=== PATIENT | female | born 1960 | race Caucasian/White ===

== ENCOUNTER → 2018-02-07 | Outpatient (CLI) | payer MEDICARE, OTHER ==
[2018-02-07 08:50] LABS: Anisocytosis Slight; HCT 35.1 % (34.0-46.0); HGB 10.9 gm/dL (11.4-16.0); Hypochromasia Moderate; MCH 21.7 pg (25.0-35.0); MCV 70.2 fL (80.0-100.0); Mean Platelet Volume 6.6; Microcytosis Marked; Platelet Count 294 k/uL (150-450); RBC 4.99 m/uL (3.80-5.40); RDW 17.4 % (11.5-15.5); WBC 3.5 k/uL (3.8-10.6)
[2018-02-07 08:57] LABS: ALT 31 U/L (9-52); AST 27 U/L (14-36); Albumin 3.9 g/dL (3.5-5.0); Alkaline Phosphatase 102 U/L (38-126); Anion Gap 11 mmol/L; Blood Urea Nitrogen 8 mg/dL (7-17); Calcium 9.5 mg/dL (8.4-10.2); Carbon Dioxide 30 mmol/L (22-30); Chloride 96 mmol/L (98-107); Glucose 84 mg/dL (74-99); Potassium 4.2 mmol/L (3.5-5.1); Sodium 137 mmol/L (137-145); Total Bilirubin 0.8 mg/dL (0.2-1.3); Total Protein 7.2 g/dL (6.3-8.2)
[2018-02-07 10:18] LABS: Basophils # (M) 0.07 k/uL (0-0.2); Eosinophils # (M) 0.07 k/uL (0-0.7); Lymphocytes # (M) 1.09 k/uL (1.0-4.8); Monocytes # (M) 0.25 k/uL (0-1.0); Neutrophils # (M) 2.03 k/uL (1.3-7.7); Neutrophils % (M) 58 %; Nucleated Red Blood Cells 0 /100 WBC (0-0); Poikilocytosis (M) Present; Total Cells Counted 100
== END | disposition home or self-care (01) ==
LOC: LABPAT 08:07
PROVIDERS: ATTEND Surgery
DX: Z01.812 Encounter for preprocedural laboratory examination (principal); Z01.818 Encounter for other preprocedural examination
CPT/HCPCS: 80053; 85025; 93005

== ENCOUNTER 2018-02-09 10:23 | Day surgery (SDC) | payer MEDICARE, OTHER ==
[2018-02-05 09:24] VITALS: BMI 44.8
[~2018-02-09 10:23] MED LIST: DEXAMETHASONE SOD PHOSPHATE 10 MG/ML 1 ML VIAL IV ONE; ENOXAPARIN 40 MG/0.4 ML SYRINGE SQ ONE; LACTATED RINGERS 1,000 ML IV SCH; ONDANSETRON 4 MG/2 ML VIAL IVP ONE; SCOPOLAMINE 1.5MG/72HR PATCH TRANSDERM ONE; ceFAZolin IN SWFI 2 GM/20 ML SYRINGE IVP ONE; fentaNYL (PF) 50 MCG/ML 2 ML AMP IV PRN
[2018-02-09 11:10] VITALS: TEMP 97.8
--- NOTE | 2018-02-09 11:10 | P.GSHP ---
History of Present Illness H&P Date: 02/09/18 Chief Complaint: Dysphagia, vomiting, gastric prolapse Patient seen in the bariatric center at [facility] 1-2 weeks ago. Patient has had progressive nausea and vomiting over the last several months. Her band was emptied and 2010. Upper GI was performed which showed possible gastric prolapse. She is tolerating liquids but has difficulties with solids. Also with heartburn symptoms. Mild discomfort at times. No recent upper endoscopy. Past Medical History Past Medical History: Asthma, Chest Pain / Angina, CVA/TIA, GERD/Reflux, Hypertension, Pulmonary Embolus (PE), Thyroid Disorder Additional Past Medical History / Comment(s): HX OF CVA DURING BACK SURGERY ( 2002), DRAGS RIGHT FOOT, TRANSFERS WITH ASSIST TO WHEELCHAIR, HX FALLS., NEUROPATHY, HX FX TIB & FIB WITH PE (2011), STATES BACK PAIN , LEG PAIN AND ALL OVER PAIN., ANEMIA., LAP BAND, STATES VOMITING-DYSPHAGIA. History of Any Multi-Drug Resistant Organisms: None Reported Past Surgical History: Back Surgery, Bariatric Surgery, Heart Catheterization, Hysterectomy, Orthopedic Surgery Additional Past Surgical History / Comment(s): solo tib/fib fx, LAP BAND, RIGHT SHOULDER, CYST THUMB . Past Anesthesia/Blood Transfusion Reactions: No Reported Reaction Past Psychological History: Anxiety Smoking Status: Never smoker Past Alcohol Use History: None Reported Past Drug Use History: None Reported - Past Family History Mother Family Medical History: Cancer Additional Family Medical History / Comment(s): STOMACH CANCER Sister(s) Family Medical History: Cancer Additional Family Medical History / Comment(s): 2 SISTERS-BREAST CANCER Medications and Allergies Home Medications Medication Instructions Recorded Confirmed Type ALPRAZolam [Xanax] 0.25 mg PO QID PRN 02/04/14 02/05/18 History Furosemide [Furosemide] 40 mg PO DAILY 02/04/14 02/05/18 History Gabapentin [Gabapentin] 600 mg PO QID 02/04/14 02/05/18 History Montelukast Sodium [Montelukast 10 mg PO HS 02/04/14 02/05/18 History Sodium] amLODIPine BESYLATE [Norvasc] 5 mg PO DAILY 02/04/14 02/05/18 History Rivaroxaban [Xarelto] 20 mg PO W/LUNCH 02/03/18 02/05/18 History Atenolol [Tenormin] 50 mg PO DAILY 02/05/18 02/05/18 History Ergocalciferol (Vitamin D2) 50,000 unit PO FR 02/05/18 02/05/18 History [Vitamin D2] Esomeprazole Magnesium [NexIUM] 40 mg PO W/LUNCH 02/05/18 02/05/18 History Levothyroxine Sodium [Synthroid] 56 mcg PO KING 02/05/18 02/05/18 History Levothyroxine Sodium [Synthroid] 112 mcg PO MOTUWETHFRSA 02/05/18 02/05/18 History Morphine Sulfate ER [Ms Contin 30 mg PO QID PRN 02/05/18 02/05/18 History 30Mg] Nitroglycerin Sl Tabs [Nitrostat] 0.4 mg SUBLINGUAL Q5M PRN 02/05/18 02/05/18 History Allergies Allergy/AdvReac Type Severity Reaction Status Date / Time clarithromycin [From Biaxin] Allergy Nausea & Verified 02/05/18 08:55 Vomiting, Rash diazepam [From Valium] Allergy Nervous, Verified 02/05/18 08:55 Hyper hydromorphone HCl Allergy Nausea & Verified 02/05/18 08:55 [From Dilaudid] Vomiting & Diarrhea Sulfa (Sulfonamide Allergy Nausea & Verified 02/05/18 08:55 Antibiotics) Vomiting sulfamethoxazole Allergy Nausea & Verified 02/05/18 08:55 [From Bactrim] Vomiting trimethoprim [From Bactrim] Allergy Nausea & Verified 02/05/18 08:55 Vomiting metoclopramide [From Reglan] AdvReac Unknown Vomiting Verified 02/05/18 08:55 adhesive AdvReac Rash/Hives Verified 02/05/18 08:55 Surgical - Exam Physical exam: General: Well-developed, well-nourished HEENT: Normocephalic, sclerae nonicteric Abdomen: Nontender, nondistended Extremities: No edema Neuro: Alert and oriented Assessment and Plan (1) Gastric prolapse Narrative/Plan: Clinical scenario discussed in detail with the patient and her family. Patient is interested in band removal. We'll proceed with laparoscopic lap band removal , possible open. We'll also plan upper endoscopy at the time of the procedure per the patient's request given her complaints of reflux. This will be performed prior to incision and may help guide our surgery if erosion is identified which is not clinically suspected. Risks of bleeding, infection, perforation, conversion, hernia, anesthesia related complications were reviewed. Patient understands and wishes to proceed. Current Visit: Yes Status: Acute Code(s): K31.89 - OTHER DISEASES OF STOMACH AND DUODENUM SNOMED Code(s): 1056717
[2018-02-09] MEDS ORDERED: LIDOCAINE 1% 20 ML VIAL (10MG/ML) FOR IV START INTRADERMA ONE (11:40)
[2018-02-09] MEDS ORDERED: BUPIVACAINE (PF) 0.25% 30 ML VIAL SQ ONE ×2 (12:10)
[2018-02-09] MEDS ORDERED: PHENYLEPHRINE-0.9% NACL SYG 1 MG/10 ML SYRINGE ONE (13:22)
[2018-02-09] MEDS ORDERED: ePHEDrine SULFATE/0.9% NACL/PF 50 MG/5 ML SYRINGE IV ONE (13:22)
[2018-02-09] MEDS ORDERED: MIDAZOLAM 2 MG/2 ML VIAL ONE (13:22)
[2018-02-09] MEDS ORDERED: NEOSTIGMINE 1 MG/ML 10 ML VIAL ONE (13:22)
[2018-02-09] MEDS ORDERED: fentaNYL (PF) 50 MCG/ML 2 ML AMP ONE (13:22)
[2018-02-09] MEDS ORDERED: ROCURONIUM BROMIDE 10 MG/ML 10 ML VIAL IV ONE (13:22)
[2018-02-09] MEDS ORDERED: GLYCOPYRROLATE 0.2 MG/ML 2 ML VIAL ONE (13:22)
[2018-02-09] MEDS ORDERED: LIDOCAINE 1% INJ 10MG/ML (20 ML MDV) ONE (13:22)
[2018-02-09] MEDS ORDERED: PROPOFOL 10 MG/ML 20 ML VIAL IV ONE (13:22)
[2018-02-09] MEDS ORDERED: HYDROcodone/APAP 5-325MG 1 EACH TAB PO PRN (14:45)
[2018-02-09] MEDS ORDERED: NALOXONE 0.4 MG/ML 1 ML VIAL IV PRN (14:45)
--- NOTE | 2018-02-09 14:49 | P.OP ---
Date of Procedure: 02/09/18 Procedure(s) Performed: PREOPERATIVE DIAGNOSIS: Gastric prolapse POSTOPERATIVE DIAGNOSIS: Same PROCEDURE: Laparoscopic lap band removal SURGEON: Letitia EBL: Minimal ANESTHESIA: General COMPLICATIONS: None OPERATIVE PROCEDURE: The patient was brought and placed on the operating room table in the supine position. The patient was placed under general anesthesia at that time. The patient was unable to be placed in lithotomy given her leg stiffness. The abdomen was prepped and draped in the usual sterile fashion. The previous port incision was localized and then incised using a scalpel. The port was easily excised using electrocautery. A crack was noted in the lap band tubing appeared chronic in nature. Entrance into the peritoneal cavity occurred using a 5 mm optical trocar through the old trocar entrance site. Insufflation took place to 15 mmHg. 2 additional 5 mm trochars were placed under direct visualization. One in the right periumbilical location and one in the right upper quadrant laterally. The original 5 mm trocar was switched to a 15 mm trocar. There were adhesions to the band in the buccal that were lysed using electrocautery. The band was then cut using the laparoscopic radha. The band was then removed easily in 2 portions through the 15 mm trocar site. The stomach itself was inspected and revealed no evidence of erosion or prolapse. The trochars were removed. The fascia at the 15 mm site was closed using a [id number] 0 Vicryl stitch. The subcutaneous tissues at the port site was closed using a 3-0 Vicryl suture. The skin at all 3 incision sites were closed using 4-0 Monocryl sutures. Steri-Strips and sterile dressings were then applied. DISPOSITION: Stable to recovery room
[2018-02-09] MEDS ORDERED: KETOROLAC 30 MG/ML 1 ML VIAL IVP ONE (15:20)
[2018-02-09 15:22] VITALS: RESP 16
[2018-02-09] MEDS ORDERED: LACTATED RINGERS 1,000 ML IV ONE (16:00)
[2018-02-09] MEDS ORDERED: HYDROcodone/APAP 5-325MG 1 EACH TAB PO ONE (16:18)
[2018-02-09 16:42] VITALS: BP 91/63; PULSE 54
[2018-02-09] MEDS ORDERED: MORPHINE SULFATE 4 MG/ML SYRINGE IV ONE (16:55)
== END 2018-02-09 17:25 | disposition home or self-care (01) ==
LOC: OR 10:23
PROVIDERS: ATTEND Surgery
DX: T85.598A Other mechanical complication of other gastrointestinal prosthetic devices, implants and grafts, initial encounter (principal); K21.9 Gastro-esophageal reflux disease without esophagitis; I10 Essential (primary) hypertension; J45.909 Unspecified asthma, uncomplicated; I69.351 Hemiplegia and hemiparesis following cerebral infarction affecting right dominant side; Z86.711 Personal history of pulmonary embolism; E07.9 Disorder of thyroid, unspecified; I20.9 Angina pectoris, unspecified; F41.9 Anxiety disorder, unspecified; Z79.01 Long term (current) use of anticoagulants; Z79.899 Other long term (current) drug therapy; Z79.890 Hormone replacement therapy; Z88.1 Allergy status to other antibiotic agents; Z88.5 Allergy status to narcotic agent; Z88.2 Allergy status to sulfonamides; Z88.8 Allergy status to other drugs, medicaments and biological substances; Z91.09 Other allergy status, other than to drugs and biological substances
CPT/HCPCS: 43774; J2250; J2270; J1100; J2710; J2405; J2001; J1650; J3010; J1885; J2370; J2704; J0690

== ENCOUNTER → 2018-03-10 | Outpatient (CLI) | payer MEDICARE, OTHER ==
[2018-03-10 14:05] VITALS: BP 109/76; PULSE 60; RESP 16; TEMP 98
--- NOTE | 2018-03-10 14:10 | P.BASOAP ---
Subjective Progress Note Date: 03/10/18 Principal diagnosis: Morbid obesity Patient doing well after recent lap band removal. No further nausea or vomiting. She said it was like a night and a difference. No troubles with her incision. No abdominal pain. Objective - Vital Signs Vital signs: Vital Signs Temp 98 F 03/10/18 14:02 Pulse 60 03/10/18 14:02 Resp 16 03/10/18 14:02 BP 109/76 03/10/18 14:02 Pulse Ox - Exam Abdomen: Soft, nondistended, nontender, incisions clean and dry Assessment/Plan (1) Gastric prolapse Narrative/Plan: Patient doing well after recent band removal. No further complaints. Follow- up as needed. Plan: Date: 03/10/18 Initial Weight: 124.738 kg Initial BMI: Current Weight: Current BMI: Type of Surgery: Total Volume in Band: Previous Volume: Volume Removed: Volume Added: Band Size:
== END | disposition home or self-care (01) ==
LOC: BARWHC3 13:51
PROVIDERS: ATTEND Surgery
DX: K31.89 Other diseases of stomach and duodenum (principal); Z98.84 Bariatric surgery status
CPT/HCPCS: 99211

== ENCOUNTER → 2019-03-08 | Outpatient (CLI) | payer MEDICARE, OTHER ==
--- NOTE | 2019-03-08 11:16 | BD ---
EXAMINATION TYPE: Axial Bone Density DATE OF EXAM: 03/08/2019 COMPARISON: 05/29/2015 CLINICAL HISTORY: Postmenopausal female. Osteoporosis screening. Height: 5 FT 3 IN Weight: 265 FRAX RISK QUESTIONS: History of Fracture in Adulthood: YES Secondary Osteoporosis: 3. Menopause before 45: YES RISK FACTORS HISTORY OF: Surgery to Spine/Hip(right/left)/Wrist (right/left): LUMBAR SURG When: 2000 Family History of Osteoporosis: YES Active: WHEEL CHAIR BOUND Postmenopausal woman: TOTAL HYST AGE 40 Take estrogen and/or progesterone medications: TOOK HRT AGE [age] Lost more than 2 inches in height since high school: YES Poor Health: YES MEDICATIONS: Thyroid Medications: YES Which medication: SYNTHROID How Lon PLUS YEARS Additional Medications: SYNTHROID,MORPHINE, TENORMIN, BLOOD PRESSURE MEDS, XARALTO, SINGULAIR, BETA B LOCKER Additional History: PT DOES NOT STAND WHEELCHAIR BOUND ASSISSTED TO GET HER ON THE TABLE EXAM MEASUREMENTS: Bone mineral density about the R hip (g/cm2): 0.672 Bone mineral density about the L hip (g/cm2): 0.823 T Score values are as follows: -----R Neck: -2.6 -----L Neck: -1.5 -----R Total: -1.7 -----L Total: -0.8 Bone mineral density has: INCREASED 1.7 % since study of: 2014 Bone mineral density about the L Wrist (g/cm2): 0.638 T Score values are as follows: -----Dist. R+U: -1.5 -----Prox. R+U: -0.5 -----Radius total: -0.6 NO COMPARISON IMPRESSION: Osteopenia (T Score between -2.5 and -1). There is slightly increased risk of fracture and the patient may be considered for treatment. Re-Screen 2-5 years. NOTE: T-SCORE=SD OF THE YOUNG ADULT MEAN.
--- NOTE | 2019-03-10 08:41 | MM ---
Reason for exam: screening (asymptomatic). Last mammogram was performed 3 years and 9 months ago. History: Patient is postmenopausal. Family history of breast cancer in sister at age 60 and premenopausal breast cancer in sister at age 50. Took estrogen for 3 years. Physical Findings: A clinical breast exam by your physician is recommended on an annual basis and results should be correlated with mammographic findings. MG 3D Screening Mammo W/Cad Bilateral CC and MLO view(s) were taken. Prior study comparison: May 29, 2015, bilateral MG screening mammo w CAD. May 27, 2014, bilateral MG screening mammo w CAD. There are scattered fibroglandular densities. No suspicious abnormality. No significant changes when compared with prior studies. ASSESSMENT: Negative, BI-RAD 1 RECOMMENDATION: Routine screening mammogram of both breasts in 1 year.
== END | disposition home or self-care (01) ==
LOC: RADMAMWWP 07:17
PROVIDERS: ATTEND Internal Medicine
DX: Z12.31 Encounter for screening mammogram for malignant neoplasm of breast (principal); M85.851 Other specified disorders of bone density and structure, right thigh; M85.852 Other specified disorders of bone density and structure, left thigh; M85.832 Other specified disorders of bone density and structure, left forearm; Z78.0 Asymptomatic menopausal state
CPT/HCPCS: 77063; 77067; 77080

== ENCOUNTER → 2019-07-31 | Outpatient (CLI) | payer MEDICARE, OTHER ==
[2019-07-31 09:31] LABS: Anisocytosis Slight; HCT 34.3 % (34.0-46.0); HGB 10.4 gm/dL (11.4-16.0); Hypochromasia Marked; MCH 21.7 pg (25.0-35.0); MCHC 30.3 g/dL (31.0-37.0); MCV 71.8 fL (80.0-100.0); Mean Platelet Volume 5.9; Microcytosis Marked; Platelet Count 283 k/uL (150-450); RBC 4.78 m/uL (3.80-5.40); RDW 18.3 % (11.5-15.5); WBC 3.6 k/uL (3.8-10.6)
[2019-07-31 10:46] LABS: Anisocytosis (M) Present; Eosinophils # (M) 0.22 k/uL (0-0.7); Lymphocytes # (M) 1.19 k/uL (1.0-4.8); Neutrophils % (M) 50 %; Nucleated Red Blood Cells 0 /100 WBC (0-0); Target Cells Present; Total Cells Counted 100
[2019-07-31 17:45] LABS: Albumin 4.1 g/dL (3.80-4.90); Albumin/Globulin Ratio 1.46 (1.60-3.17); Anion Gap 6.4 mmol/L (4.00-12.00); Calcium 8.9 mg/dL (8.7-10.3); Carbon Dioxide 26.6 mmol/L (21.6-31.8); Chol/HDL Ratio 2.17; Globulin 2.8 g/dL (1.6-3.3); LDL Cholesterol,Calculated 60.2 mg/dL (0.0-131.0); Potassium 4.3 mmol/L (3.5-5.5); Total Protein 6.9 g/dL (6.2-8.2); VLDL Calculation 15.8 mg/dL (5.00-40.00)
[2019-07-31 17:53] LABS: T4, Free (Free Thyroxine) 1.2 ng/dL (0.80-1.80)
== END | disposition home or self-care (01) ==
LOC: LABWHC1 08:28
PROVIDERS: ATTEND Internal Medicine
DX: E06.3 Autoimmune thyroiditis (principal); E03.9 Hypothyroidism, unspecified; E55.9 Vitamin D deficiency, unspecified; E78.00 Pure hypercholesterolemia, unspecified
CPT/HCPCS: 36415; 80053; 80061; 82306; 84439; 84443; 85025

== ENCOUNTER → 2021-04-10 | Outpatient (CLI) | payer MEDICARE, OTHER ==
[2021-04-10 16:31] LABS: HGB 9.9 g/dL (12.0-15.0); MCH 20.2 pg (27.0-32.0); MCV 67.5 fL (80.0-97.0); Platelet Count 372 X 10*3/uL (140-440); RBC 4.89 X 10*6/uL (4.10-5.20); RDW 19.3 % (11.5-14.5); WBC 6.71 X 10*3/uL (4.50-10.00)
[2021-04-10 20:55] LABS: African American GFR (CKD) 120.2 (60.0-200.0); Albumin/Globulin Ratio 1.25 (1.60-3.17); Anion Gap 9.3 mmol/L (4.00-12.00); Calcium 8.7 mg/dL (8.7-10.3); Carbon Dioxide 22.7 mmol/L (21.6-31.8); Chol/HDL Ratio 2.32; Globulin 3.2 g/dL (1.6-3.3); LDL Cholesterol,Calculated 57.6 mg/dL (0.0-131.0); Non-African American GFR(CKD) 103.7 (60.0-200.0); Potassium 4.5 mmol/L (3.5-5.5); Total Bilirubin 0.9 mg/dL (0.3-1.2); Total Protein 7.2 g/dL (6.2-8.2); VLDL Calculation 16.4 mg/dL (5.00-40.00)
[2021-04-10 21:02] LABS: T4, Free (Free Thyroxine) 1.4 ng/dL (0.80-1.80)
[2021-04-11 20:55] LABS: % Iron Saturation 4.99 (12.00-45.00)
== END | disposition home or self-care (01) ==
LOC: LABWHC1 08:25
PROVIDERS: ATTEND Internal Medicine
DX: E03.9 Hypothyroidism, unspecified (principal); E55.9 Vitamin D deficiency, unspecified; E78.5 Hyperlipidemia, unspecified
CPT/HCPCS: 36415; 80053; 80061; 82306; 83540; 83550; 84439; 84443; 85027

== ENCOUNTER → 2022-01-08 | Outpatient (CLI) | payer MEDICARE, OTHER ==
[2022-01-08 14:30] LABS: HGB 10.8 g/dL (12.0-15.0); MCH 22.4 pg (27.0-32.0); MCHC 30.9 g/dL (32.0-37.0); MCV 72.6 fL (80.0-97.0); Mean Platelet Volume 10.5 fL (9.5-12.2); NRBC Per 100 WBC 0.4 /100 WBCS (0.0-0.0); Platelet Count 309 X 10*3/uL (140-440); RBC 4.82 X 10*6/uL (4.10-5.20); RDW 18.2 % (11.5-14.5); WBC 5.36 X 10*3/uL (4.50-10.00)
[2022-01-08 15:32] LABS: % Iron Saturation 4.99 (12.00-45.00); T4, Free (Free Thyroxine) 1.65 ng/dL (0.800-1.800)
== END | disposition home or self-care (01) ==
LOC: LABWHC1 09:16
PROVIDERS: ATTEND Internal Medicine
DX: E61.1 Iron deficiency (principal); E03.9 Hypothyroidism, unspecified; E55.9 Vitamin D deficiency, unspecified; R73.9 Hyperglycemia, unspecified
CPT/HCPCS: 36415; 82306; 83540; 83550; 84439; 84443; 85027

== ENCOUNTER → 2022-12-11 | Outpatient (CLI) | payer MEDICARE, OTHER ==
[2022-12-11 15:27] LABS: HCT 44.6 % (37.2-46.3); HGB 14.7 g/dL (12.0-15.0); MCH 29.5 pg (27.0-32.0); MCV 89.4 fL (80.0-97.0); NRBC Per 100 WBC 0 /100 WBCS (0.0-0.0); Platelet Count 214 X 10*3/uL (140-440); RBC 4.99 X 10*6/uL (4.10-5.20); RDW 15.1 % (11.5-14.5); WBC 6.99 X 10*3/uL (4.50-10.00)
[2022-12-11 16:35] LABS: % Iron Saturation 29.61 (12.00-45.00); African American GFR (CKD) 111.6 (60.0-200.0); Anion Gap 18.5 mmol/L (10.00-18.00); BUN/Creat Ratio 15.33 Ratio (12.00-20.00); Blood Urea Nitrogen 9.2 mg/dL (9.0-27.0); Calcium 9.9 mg/dL (8.7-10.3); Carbon Dioxide 22.5 mmol/L (20.0-27.5); Ferritin 92.9 ng/mL (10.0-291.0); Non-African American GFR(CKD) 96.3 (60.0-200.0); Potassium 4.6 mmol/L (3.5-5.5); T4, Free (Free Thyroxine) 2.02 ng/dL (0.800-1.800)
== END | disposition home or self-care (01) ==
LOC: LABWHC1 09:29
PROVIDERS: ATTEND Internal Medicine
DX: E03.9 Hypothyroidism, unspecified (principal); E55.9 Vitamin D deficiency, unspecified; E61.1 Iron deficiency
CPT/HCPCS: 36415; 80048; 82306; 82728; 83540; 83550; 84439; 84443; 85027

== ENCOUNTER → 2022-12-11 | Outpatient (CLI) | payer MEDICARE, OTHER ==
--- NOTE | 2022-12-11 10:40 | XR ---
EXAM TYPE: LUMBAR SPINE X RAY SERIES COMPARISON: NONE HISTORY: Back pain TECHNIQUE: 4 views are submitted. FINDINGS: Alignment is anatomic. The pedicles are intact. The transverse processes are intact. There is no s pondylolysis or spondylolisthesis. Surgical clips in the right upper quadrant. There is diffuse oste openia and there is severe multilevel degenerative disc disease most marked at levels L3-L5. Suspect multilevel foraminal protrusion with facet arthropathy. Retrolisthesis of L3 on L4 and L4 on L5. Curv ature of the spine noted. Nonspecific right upper quadrant calcification. IMPRESSION: 1. Diffuse osteopenia with severe degenerative disc disease L3-L5 suspected foraminal encroachment. R ecommend follow-up MRI..
== END | disposition home or self-care (01) ==
LOC: LABWHC1 09:34
PROVIDERS: ATTEND Physical Medicine & Rehabilitation
DX: M51.36 Other intervertebral disc degeneration, lumbar region (principal); M85.88 Other specified disorders of bone density and structure, other site
CPT/HCPCS: 72110

== ENCOUNTER 2023-09-24 08:31 | Day surgery (SDC) | payer MEDICARE, OTHER ==
[2023-09-19 11:47] VITALS: BMI 50.8
[~2023-09-24 08:31] MED LIST changes: -DEXAMETHASONE SOD PHOSPHATE 10 MG/ML 1 ML VIAL IV ONE; -ENOXAPARIN 40 MG/0.4 ML SYRINGE SQ ONE; +LIDOCAINE 1% (10MG/ML) FOR IV START INTRADERMA PRN; -ONDANSETRON 4 MG/2 ML VIAL IVP ONE; -SCOPOLAMINE 1.5MG/72HR PATCH TRANSDERM ONE; -ceFAZolin IN SWFI 2 GM/20 ML SYRINGE IVP ONE; -fentaNYL (PF) 50 MCG/ML 2 ML AMP IV PRN
[2023-09-24 09:16] VITALS: RESP 16; TEMP 97
[2023-09-24] MEDS ORDERED: LIDOCAINE 2% (PF) 20 MG/ML 5 ML VIAL ONE (09:31)
[2023-09-24] MEDS ORDERED: PROPOFOL 10 MG/ML 20 ML VIAL IV ONE (09:31)
[2023-09-24] MEDS ORDERED: fentaNYL (PF) 50 MCG/ML 2 ML AMP ONE (09:31)
[2023-09-24 09:32] LABS: Glucose,Whole Blood 77 mg/dL (70-110)
--- NOTE | 2023-09-24 09:42 | P.PCN ---
Date of Procedure: 09/24/23 Procedure(s) Performed: BRIEF HISTORY: Patient is a 63-year-old, pleasant, whites female scheduled for an upper endoscopy as a part of evaluation of chronic cough and intermittent dysphagia to solids for the last 6 months duration.. PROCEDURE PERFORMED: Esophagogastroduodenoscopy with biopsy. PREOPERATIVE DIAGNOSIS: Chronic cough and dysphagia. IV sedation per anesthesia. PROCEDURE: After informed consent was obtained, the patient was brought into the endoscopy unit. IV sedation was administered by Anesthesia under continuous monitoring. Initially the Olympus GIF-140 video endoscope was inserted into the mouth. Esophagus intubated without any difficulty. It was gradually advanced into the stomach and duodenum and carefully examined. The bulb and the second part of the duodenum appeared normal. The scope at this time was withdrawn to the stomach, adequately insufflated with air, and upon careful examination, mucosa of the antrum were normal. Multiple gastric polyps noted in the gastric body which were biopsied. Rest of the, body, cardia and the fundus appeared normal. The scope was then withdrawn into the esophagus. The GE junction was located at 39 cm from the incisors. All hiatal hernia noted. The esophagus appeared normal. There were no erosions or ulcerations seen and the patient tolerated the procedure well. IMPRESSION: 1. Small hiatal hernia but no evidence of esophagitis or esophageal stricture. 2. Multiple gastric polyps status post biopsy. RECOMMENDATIONS: The findings of this examination were discussed with the patient as well as a family. She was advised to follow with the biopsy results. Continue with Nexium 40 mg daily and follow antrum reflux measures..
[2023-09-24 10:04] VITALS: BP 115/71; PULSE 52
== END 2023-09-24 10:32 | disposition home or self-care (01) ==
LOC: ORWHC2ENDO 08:31
PROVIDERS: ATTEND Internal Medicine Gastroenterology
DX: K29.50 Unspecified chronic gastritis without bleeding (principal); K31.7 Polyp of stomach and duodenum; K44.9 Diaphragmatic hernia without obstruction or gangrene; I10 Essential (primary) hypertension; E78.5 Hyperlipidemia, unspecified; E03.9 Hypothyroidism, unspecified; F41.9 Anxiety disorder, unspecified; I26.99 Other pulmonary embolism without acute cor pulmonale; K21.9 Gastro-esophageal reflux disease without esophagitis; Z79.899 Other long term (current) drug therapy; Z98.890 Other specified postprocedural states; Z88.2 Allergy status to sulfonamides; E66.01 Morbid (severe) obesity due to excess calories; Z79.891 Long term (current) use of opiate analgesic; Z68.43 Body mass index [BMI] 50.0-59.9, adult
CPT/HCPCS: 43239; J3010; J2704; J2001; 88305

== ENCOUNTER → 2023-12-10 | Outpatient (CLI) | payer MEDICARE, OTHER ==
--- NOTE | 2023-12-10 15:11 | BD ---
EXAMINATION TYPE: Axial Bone Density DATE OF EXAM: 12/10/2023 CLINICAL HISTORY: 63 years old Female. ICD-10 CODE: Z78.0 ASYMPTOMATIC MENOPAUSAL STA Height: Weight: PT IN A WHEEL CHAIR FRAX RISK QUESTIONS: Family History (Parent hip fracture): yes History of Fracture in Adulthood: yes Secondary Osteoporosis: yes 3. Menopause before 45: yes RISK FACTORS HISTORY OF: height loss, poor health, menopause at 40 hx of rt leg and foot fx with surgical repair Surgery to Spine 2000 lumbar surgery MEDICATIONS: steroids for lungs, bp meds, blood thinners, beta blockers, pain meds including morphine Thyroid Medications: yes, synthroid over 35 yrs EXAM MEASUREMENTS: Bone mineral densitometry was performed using the [employer] System. SPINAL SURGERY, SPINE NOT SCANNED Bone mineral density about the R hip (g/cm2): 0.857 Bone mineral density about the L hip (g/cm2): 0.948 T Score values are as follows: -----R Neck: -1.8 -----L Neck: -0.1 -----R Total: -1.2 -----L Total: -0.5 Z Score values are as follows: -----R Neck: -1.1 -----L Neck: 0.6 -----R Total: -0.8 -----L Total: -0.5 Bone mineral density has: Increased 6.7% since study of: 03.08.2019 PT REFUSED FOREARM SCAN, IN TOO MUCH PAIN. FRAX%s: The graph provided illustrates a 31.5% chance for a major osteoporotic fx and a 2.5% chance f or the hips probability for fx in 10 years time. IMPRESSION: Osteopenia (T Score between -2.5 and -1). There is slightly increased risk of fracture and the patient may be considered for treatment. Re-Screen 2-5 years. NOTE: T-SCORE=SD OF THE YOUNG ADULT MEAN.
[2023-12-10 16:58] LABS: Basophils # (A) 0.05 X 10*3/uL (0.00-0.10); Basophils % (A) 1.3 %; Eosinophils # (A) 0.13 X 10*3/uL (0.04-0.35); Eosinophils % (A) 3.3 %; HCT 46.1 % (37.2-46.3); HGB 14.8 g/dL (12.0-15.0); Lymphocytes # (A) 1.18 X 10*3/uL (0.90-5.00); Lymphocytes % (A) 29.8 %; MCH 28.7 pg (27.0-32.0); MCHC 32.1 g/dL (32.0-37.0); MCV 89.3 FL (80.0-97.0); Mean Platelet Volume 11.1 FL (9.5-12.2); Monocytes # (A) 0.27 X 10*3/uL (0.20-1.00); Monocytes % (A) 6.8 %; NRBC Per 100 WBC 0 X 10*3/uL (0.00-0.01); Neutrophils # (A) 2.32 X 10*3/uL (1.80-7.70); Neutrophils % (A) 58.5 %; Platelet Count 238 X 10*3/uL (140-440); RBC 5.16 X 10*6/uL (4.10-5.20); RDW 15.2 % (11.5-14.5); WBC 3.96 X 10*3/uL (4.50-10.00)
[2023-12-10 17:28] LABS: BUN/Creat Ratio 13.67 Ratio (12.00-20.00); Blood Urea Nitrogen 8.2 mg/dL (9.0-27.0); Calcium 9.9 mg/dL (8.7-10.3); Carbon Dioxide 27.2 mmol/L (21.6-31.8); Chloride 99 mmol/L (96-109); Chol/HDL Ratio 2.28 Ratio; Glucose 83 mg/dL (70-110); LDL Cholesterol,Calculated 77.4 mg/dL (0.0-131.0); Potassium 4.4 mmol/L (3.5-5.5); Sodium 136 mmol/L (135-145); VLDL Calculation 17.02 mg/dL (5.00-40.00)
--- NOTE | 2023-12-10 18:41 | MM ---
Reason for Exam: Screening (asymptomatic). Last mammogram was performed 4 year(s) and 9 month(s) ago. Patient History: Menarche at age 10. First Full-Term at age 24. Left ovary removed at age 40. Right ovary removed at age 40. Hysterectomy at age 40. Postmenopausal. Estrogen for 3 years until age 44. Sister had breast cancer, age 60. Sister had breast cancer, age 50. Risk Values: Yanick 5 year model risk: 5.7%. NCI Lifetime model risk: 20.2%. Prior Study Comparison: 05/27/2014 Bilateral Screening Mammogram, [facility]. 05/29/2015 Bilateral Screening Mammogram, [facility]. 03/08/2019 Bilateral Screening Mammogram, [facility]. Tissue Density: There are scattered areas of fibroglandular density. Findings: Analyzed By CAD. There is no suspicious group of microcalcifications or new suspicious mass in either breast. Overall Assessment: Negative, BI-RAD 1 Management: Screening Mammogram of both breasts in 1 year. SEE NOTE BELOW IN REGARDS TO PATIENT'S INCREASED 5 YEAR YANICK SCORE AND INCREASED LIFETIME RISK SCORE. Patient should continue monthly self-breast exams. A clinical breast exam by your physician is recommended on an annual basis. This exam should not preclude additional follow-up of suspicious palpable abnormalities. Note on Yanick scores and lifetime risk: 1. A Yanick score greater than 3% is considered moderate risk. If this is the case, consider specialist referral to assess eligibility for a risk reducing agent. 2. If overall lifetime risk for the development of breast cancer is 20% or higher, the patient may qualify for future screening with alternating mammogram and breast MRI. Electronically signed and approved by: Aurora Newton M.D. Radiologist
== END | disposition home or self-care (01) ==
LOC: RADMAMWWP 09:22
PROVIDERS: ATTEND Family Medicine
DX: Z12.31 Encounter for screening mammogram for malignant neoplasm of breast (principal); I10 Essential (primary) hypertension; R11.0 Nausea; R79.9 Abnormal finding of blood chemistry, unspecified; Z78.0 Asymptomatic menopausal state
CPT/HCPCS: 77063; 77067; 77080; 80048; 80061; 83036; 85025

== ENCOUNTER 2025-03-06 01:46 | Emergency (ER) | payer MEDICARE, OTHER ==
[2025-03-06 01:51] VITALS: RESP 16
--- NOTE | 2025-03-06 01:59 | ED ---
Wound/Laceration HPI - General Chief Complaint: Wound/Laceration Stated Complaint: ear laceration Time Seen by Provider: 03/06/25 01:53 Source: patient, RN notes reviewed Mode of arrival: EMS Limitations: no limitations - History of Present Illness Initial Comments: 64-year-old female presenting to the emergency department via EMS for concerns of bleeding to her right inner ear. Patient states that this evening she excellently scratched her ear and was able to stop the bleeding. Patient went to bed and woke up with her neck get saturated with blood and noticed that the laceration in her ear has started to bleed again. Patient is on Xarelto. She denies dizziness or lightheadedness. - Related Data Home Medications Medication Instructions Recorded Confirmed Furosemide 40 mg PO DAILY 02/04/14 09/24/23 Montelukast Sodium 10 mg PO HS 02/04/14 09/24/23 amLODIPine BESYLATE [Norvasc] 5 mg PO DAILY 02/04/14 09/24/23 Rivaroxaban [Xarelto] 20 mg PO W/LUNCH 02/03/18 09/24/23 Ergocalciferol (Vitamin D2) 50,000 unit PO FR 02/05/18 09/24/23 [Vitamin D2] Esomeprazole Magnesium [NexIUM] 40 mg PO W/LUNCH 02/05/18 09/24/23 Levothyroxine Sodium [Synthroid] 112 mcg PO DAILY 02/05/18 09/24/23 Morphine Sulfate ER [Ms Contin 30 mg PO QID PRN 02/05/18 09/24/23 30Mg] Nitroglycerin Sl Tabs [Nitrostat] 0.4 mg SUBLINGUAL Q5M PRN 02/05/18 09/24/23 atenoloL [Tenormin] 50 mg PO DAILY 02/05/18 09/24/23 Allergies Allergy/AdvReac Type Severity Reaction Status Date / Time clarithromycin [From Biaxin] Allergy Nausea & Verified 03/06/25 01:51 Vomiting, Rash diazepam [From Valium] Allergy Nervous, Verified 03/06/25 01:51 Hyper hydromorphone HCl Allergy Nausea & Verified 03/06/25 01:51 [From Dilaudid] Vomiting & Diarrhea Sulfa (Sulfonamide Allergy Nausea & Verified 03/06/25 01:51 Antibiotics) Vomiting sulfamethoxazole Allergy Nausea & Verified 03/06/25 01:51 [From Bactrim] Vomiting trimethoprim [From Bactrim] Allergy Nausea & Verified 03/06/25 01:51 Vomiting metoclopramide [From Reglan] AdvReac Unknown Vomiting Verified 03/06/25 01:51 adhesive AdvReac Rash/Hives Verified 03/06/25 01:51 Review of Systems ROS Statement: Those systems with pertinent positive or pertinent negative responses have been documented in the HPI. ROS Other: All systems not noted in ROS Statement are negative. Past Medical History Past Medical History: Asthma, Chest Pain / Angina, CVA/TIA, GERD/Reflux, Hyp ertension, Pulmonary Embolus (PE), Thyroid Disorder Additional Past Medical History / Comment(s): HX OF CVA DURING BACK SURGERY (2002), DRAGS RIGHT FOOT, TRANSFERS WITH ASSIST TO WHEELCHAIR, HX FALLS., NEUROPATHY, HX FX TIB & FIB WITH PE (2011), STATES BACK PAIN , LEG PAIN AND ALL OVER PAIN., ANEMIA., LAP BAND, DYSPHAGIA. History of Any Multi-Drug Resistant Organisms: None Reported Past Surgical History: Back Surgery, Bariatric Surgery, Heart Catheterization, Hysterectomy, Orthopedic Surgery Additional Past Surgical History / Comment(s): solo tib/fib fx, LAP BAND (removed January 2018), RIGHT SHOULDER, CYST THUMB . EGD, COLONOSCOPY Past Anesthesia/Blood Transfusion Reactions: No Reported Reaction Past Psychological History: Anxiety Smoking Status: Never smoker Past Alcohol Use History: None Reported Past Drug Use History: None Reported - Past Family History Mother Family Medical History: Cancer Additional Family Medical History / Comment(s): STOMACH CANCER Sister(s) Family Medical History: Cancer Additional Family Medical History / Comment(s): 2 SISTERS-BREAST CANCER General Exam Limitations: no limitations Eye exam: Present: normal appearance, PERRL, EOMI. Absent: scleral icterus, conjunctival injection, periorbital swelling Expanded 1 - pinpoint laceration, continued bleeding Course Vital Signs 03/06/25 03/06/25 01:48 03:19 Temperature 97.7 F 98.6 F Pulse Rate 59 L 66 Respiratory 16 16 Rate Blood Pressure 147/91 154/76 O2 Sat by Pulse 98 97 Oximetry Medical Decision Making - Medical Decision Making Was pt. sent in by a medical professional or institution (KATIE Cadet, GEOMAGNETICIAN, urgent care, hospital, or detention...) When possible be specific @ -No Did you speak to anyone other than the patient for history (EMS, parent, family, police, friend...)? What history was obtained from this source @ -No Did you review nursing and triage notes (agree or disagree)? Why? @ -I reviewed and agree with nursing and triage notes Were old charts reviewed (outside hosp., previous admission, EMS record, old EKG, old radiological studies, urgent care reports/EKG's, detention records)? Report findings @ -No old charts were reviewed Differential Diagnosis (chest pain, altered mental status, abdominal pain women, abdominal pain men, vaginal bleeding, weakness, fever, dyspnea, syncope, headache, dizziness, GI bleed, back pain, seizure, CVA, palpatations, mental health, musculoskeletal)? @ -Laceration, skin avulsion, this list is not all inclusive EKG interpreted by me (3pts min.). @ -None X-rays interpreted by me (1pt min.). @ -None done CT interpreted by me (1pt min.). @ -None done U/S interpreted by me (1pt. min.). @ -None done What testing was considered but not performed or refused? (CT, X-rays, U/S, lab s)? Why? @ -None What meds were considered but not given or refused? Why? @ -None Did you discuss the management of the patient with other professionals (professionals i.e. KATIE Cadet, GEOMAGNETICIAN, lab, RT, psych nurse, social media campaign manager, sorting machine attendant, teacher, special technical operations officer, residential case manager)? Give summary @ -No Was smoking cessation discussed for >3mins.? @ -No Was critical care preformed (if so, how long)? @ -No Were there social determinants of health that impacted care today? How? (Homelessness, low income, unemployed, alcoholism, drug addiction, transportation, low edu. Level, literacy, decrease access to med. care, fpc, rehab)? @ -No Was there de-escalation of care discussed even if they declined (Discuss DNR or withdrawal of care, Hospice)? DNR status @ -No What co-morbidities impacted this encounter? (DM, HTN, Smoking, COPD, CAD, Cancer, CVA, ARF, Chemo, Hep., AIDS, mental health diagnosis, sleep apnea, morbid obesity)? @ -None Was patient admitted / discharged? Hospital course, mention meds given and route, prescriptions, significant lab abnormalities, going to OR and other pertinent info. @ -Discharge. 64-year-old female presents emergency room with complaints of right inner ear bleeding. Attempted to apply direct pressure with nasal clamp for 20+ minutes of the ear however this did not cease bleeding. Silver nitrate stick is used to help stop bleeding. Observation for 20 minutes after silver nitrate application used bleeding has not resumed. Patient stable for discharge. Case discussed with Dr. Collins Undiagnosed new problem with uncertain prognosis? @ -No Drug Therapy requiring intensive monitoring for toxicity (Heparin, Nitro, Insulin, Cardizem)? @ -No Were any procedures done? @ -No Diagnosis/symptom? @ -laceration of inner-ear Acute, or Chronic, or Acute on Chronic? @ -acute Uncomplicated (without systemic symptoms) or Complicated (systemic symptoms)? @ -uncomplicated Side effects of treatment? @ -No Exacerbation, Progression, or Severe Exacerbation? @ -No Poses a threat to life or bodily function? How? (Chest pain, [place], [place], pneumonia, PE, COPD, DKA, ARF, appy, cholecystitis, CVA, Diverticulitis, Homicidal, Suicidal, threat to staff... and all critical care pts) @ -No Disposition Clinical Impression: Laceration Disposition: HOME SELF-CARE Condition: Stable Instructions (If sedation given, give patient instructions): Potassium Nitrate/Silver Nitrate (On the skin), Laceration (ED) Additional Instructions: Please return to the Emergency Department if symptoms worsen or any other concerns. Is patient prescribed a controlled substance at d/c from ED?: No Referrals: Du Chery MD [REFERRING] - 1-2 days Time of Disposition: 03:16
[2025-03-06] MEDS: MORPHINE SULFATE 4 MG/ML SYRINGE IM STA (02:35)
[2025-03-06] MEDS: SILVER NITRATE APPLICATOR 1 EACH STICK..EA. TOPICAL STA (02:38)
[2025-03-06 03:20] VITALS: BP 154/76; PULSE 66; TEMP 98.6
== END 2025-03-06 03:20 | disposition home or self-care (01) ==
LOC: EC 01:46
DX: S01.311A Laceration without foreign body of right ear, initial encounter (principal); Z91.048 Other nonmedicinal substance allergy status; Z88.2 Allergy status to sulfonamides; Z88.1 Allergy status to other antibiotic agents; Z88.8 Allergy status to other drugs, medicaments and biological substances
CPT/HCPCS: 99283; 96372; J2270